=== PATIENT | female | born 2000 | race Caucasian/White ===

== ENCOUNTER 2018-12-15 10:37 | Emergency (ER) | payer BC ==
[2018-12-15 11:34] LABS: Absolute Lymphocytes (CBC) 2.3 K/uL (0.7-4.9); Absolute Monocytes 0.5 K/uL (0.1-1.3); Basophils % 0.9 % (0-1.3); Eosinophils % 2.3 % (0-4.4); Hematocrit 38.1 % (36.0-45.0); Lymphocytes % 38.9 % (15.3-44.8); MPV 8.4 fL (7.6-11.3); Monocytes % 7.5 % (3.3-12.3); RBC Red Blood Cell Count 4.65 M/uL (3.86-4.86)
[2018-12-15 11:52] LABS: ALT/SGPT 21 U/L (12-78); AST/SGOT 13 U/L (15-37); Alkaline Phosphatase 76 U/L (45-117); BUN Blood Urea Nitrogen 11 mg/dL (7-18); Bicarbonate 30 mmol/L (21-32); Bilirubin Direct < 0.1 mg/dL (0-0.2); Bilirubin Total 0.3 mg/dL (0.2-1.0); Glucose Level 113 mg/dL (74-106); Lipase 126 U/L (73-393); Potassium 4.1 mmol/L (3.5-5.1); Protein, Total 7.6 g/dL (6.4-8.2); Sodium Level 139 mmol/L (136-145)
--- NOTE | 2018-12-15 12:15 | EDPHYS ---
Physician Documentation [facility] Name: Lin Kelley Age: 18 yrs Sex: Female : 2000 Arrival Date: 12/15/2018 Time: 10:39 Bed 16 Private MD: ED Physician Varun Vega HPI: 12/15 11:11 This 18 yrs old Female presents to ER via Ambulatory with complaints of jmm Diarrhea, Abdominal Pain. 11:11 The patient presents to the emergency department with nausea, diarrhea, abdominal pain. jmm Onset: The symptoms/episode began/occurred gradually, 3 month(s) ago. Possible causes: unknown. This is a 18 year old female with no chronic medical conditions that presents to the ED with complaints of diarrhea for months. patient recently finished a course of amoxicillin and flagyl. Symptoms continue with occasional episode of LLQ pain. . 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 - Social history:: Smoking status: Patient/guardian denies using tobacco. - Ebola Screening: : Patient negative for fever greater than or equal to 101.5 degrees Fahrenheit, and additional compatible Ebola Virus Disease symptoms Patient denies exposure to infectious person Patient denies travel to an Ebola-affected area in the 21 days before illness onset No symptoms or risks identified at this time. ROS: 11:11 Constitutional: Negative for fever, chills, and weight loss, Cardiovascular: Negative jmm for chest pain, palpitations, and edema, Respiratory: Negative for shortness of breath, cough, wheezing, and pleuritic chest pain. 11:11 Abdomen/GI: Positive for abdominal pain, diarrhea. 11:11 All other systems are negative. Exam: 11:11 Constitutional: This is a well developed, well nourished patient who is awake, alert, jmm and in no acute distress. Head/Face: atraumatic. Eyes: EOMI, no conjunctival erythema appreciated ENT: Moist Mucus Membranes Neck: Trachea midline, Supple Chest/axilla: Normal chest wall appearance and motion. Cardiovascular: Regular rate and rhythm. No edema appreciated Respiratory: Normal respirations, no respiratory distress appreciated 11:11 Abdomen/GI: Inspection: abdomen appears normal, Bowel sounds: normal, Palpation: abdomen is soft and non-tender, in all quadrants. 11:11 Back: ROM is normal. 11:11 Musculoskeletal/extremity: ROM: intact in all extremities. 11:11 Skin: Appearance: Color: normal in color. 11:11 Neuro: Orientation: is normal, Mentation: is normal, Memory: is normal. 11:11 Psych: Behavior/mood is pleasant, cooperative. Vital Signs: 10:47 BP 130 / 79; Pulse 79; Resp 17; Temp 97.8(O); Pulse Ox 100% on R/A; Weight 72.57 kg sg (R); Height 5 ft. 4 in. (162.56 cm); Pain 6/10; 11:30 BP 118 / 73; Pulse 77; Resp 16; Pulse Ox 100% on R/A; rb1 12:30 BP 110 / 67; Pulse 75; Resp 15; Pulse Ox 100% on R/A; rb1 10:47 Body Mass Index 27.46 (72.57 kg, 162.56 cm) MDM: 10:41 Patient medically screened. angie 12:12 Data reviewed: vital signs, nurses notes. Counseling: I had a detailed discussion with fiona the patient and/or guardian regarding: the historical points, exam findings, and any diagnostic results supporting the discharge/admit diagnosis, lab results, radiology results, the need for outpatient follow up, to return to the emergency department if symptoms worsen or persist or if there are any questions or concerns that arise at home. ED course: Repeat abdominal exam is non tender to palpation. Labs are unremarkable. Symptoms have been chronic. I do not currently suspect an acute intraabdominal process. Patient given strict return precautions. Patient will follow up with GI for further evaluation. . 12/15 11: Order name: Basic Metabolic Panel; Complete Time: 12: [facility] 12/15 11: Order name: CBC with Diff; Complete Time: 12: [facility] 12/15 11: Order name: Creatinine for Radiology; Complete Time: 12: [facility] 12/15 11:02 Order name: Hepatic Function; Complete Time: 12: [facility] 12/15 11: Order name: Lipase; Complete Time: 12: [facility] 12/15 11:24 Order name: Urine Dipstick--Ancillary (enter results) ms 12/15 11:02 Order name: IV Saline Lock; Complete Time: : [facility] 12/15 11:02 Order name: Labs collected and sent; Complete Time: [facility] 12/15 11:02 Order name: Urine Test (obtain specimen); Complete Time: : [facility] 12/15 11:24 Order name: Urine --Ancillary (enter results) ms Administered Medications: No medications were administered Disposition: 12/16 07:50 Co-signature as Attending Physician, Varun Vega MD I agree with the assessment and angie plan of care. Disposition: 12/15/18 12:14 Discharged to Home. Impression: Generalized abdominal pain, Diarrhea, unspecified. - Condition is Stable. - Discharge Instructions: Abdominal Pain, Adult, Food Choices to Help Relieve Diarrhea, Adult, Diarrhea, Adult. - Medication Reconciliation Form, Thank You Letter, Antibiotic Education, Prescription Opioid Use form. - Follow up: Doug Corona MD; When: 2 - 3 days; Reason: Recheck today's complaints, Continuance of care, Re-evaluation by your physician. Signatures: Dispatcher [employer] EDYung Snell RN RN Varun Sherwood MD MD cha Mickail, Joel, PA PA [facility] Isabel Tidwell, RN RN rb1 Corrections: (The following items were deleted from the chart) 12/15 12:45 12:14 12/15/2018 12:14 Discharged to Home. Impression: Generalized abdominal pain; rb1 Diarrhea, unspecified. Condition is Stable. Forms are Medication Reconciliation Form, Thank You Letter, Antibiotic Education, Prescription Opioid Use. Follow up: Doug Corona; When: 2 - 3 days; Reason: Recheck today's complaints, Continuance of care, Re-evaluation by your physician. kiran
--- NOTE | 2018-12-15 12:15 | ER ---
Nurse's Notes [facility] Name: Lin Kelley Age: 18 yrs Sex: Female : 2000 Arrival Date: 12/15/2018 Time: 10:39 Bed 16 Private MD: Diagnosis: Generalized abdominal pain;Diarrhea, unspecified Presentation: 12/15 10:45 Presenting complaint: Patient states: Abdominal pain for two weeks now, was seen by sg and started on ABX Penicllin/Flagyl for diarrhea and pain, medications complete no changes in the pain or diarrhea per the patient, reports having abd swelling that started last night. Transition of care: patient was not received from another setting of care. Onset of symptoms was December 15, 2018. Risk Assessment: Do you want to hurt yourself or someone else? Patient reports no desire to harm self or others. Initial Sepsis Screen: Does the patient meet any 2 criteria? No. Patient's initial sepsis screen is negative. Does the patient have a suspected source of infection? No. Patient's initial sepsis screen is negative. Care prior to arrival: None. 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 - Social history:: Smoking status: Patient/guardian denies using tobacco. - Ebola Screening: : Patient negative for fever greater than or equal to 101.5 degrees Fahrenheit, and additional compatible Ebola Virus Disease symptoms Patient denies exposure to infectious person Patient denies travel to an Ebola-affected area in the 21 days before illness onset No symptoms or risks identified at this time. Screenin:40 Abuse screen: Denies threats or abuse. Nutritional screening: No deficits noted. rb1 Tuberculosis screening: No symptoms or risk factors identified. Fall Risk None identified. Assessment: 10:40 General: Appears in no apparent distress. comfortable, Behavior is calm, cooperative, rb1 Denies fever. Pain: Complains of pain in right lower quadrant and left lower quadrant Pain currently is 2 out of 10 on a pain scale. Pain began Off and on for several months. Neuro: Level of Consciousness is awake, alert, obeys commands, Oriented to person, place, time, situation. Cardiovascular: Capillary refill < 3 seconds is brisk in bilateral fingers. Respiratory: Airway is patent Respiratory effort is even, unlabored, Respiratory pattern is regular, symmetrical. GI: Abdomen is non-distended, Reports diarrhea, nausea, since x several months. : Reports foul odor. Derm: Skin is pink, warm \T\ dry. Musculoskeletal: Range of motion: intact in all extremities. 10:40 GI: Reports indigestion. rb1 11:29 Reassessment: Patient appears in no apparent distress at this time. No changes from rb1 previously documented assessment. 12:25 Reassessment: Patient appears in no apparent distress at this time. Patient and/or rb1 family updated on plan of care and expected duration. Pain level reassessed. Patient is alert, oriented x 3, equal unlabored respirations, skin warm/dry/pink. Mother at bedside. Vital Signs: 10:47 BP 130 / 79; Pulse 79; Resp 17; Temp 97.8(O); Pulse Ox 100% on R/A; Weight 72.57 kg sg (R); Height 5 ft. 4 in. (162.56 cm); Pain 6/10; 11:30 BP 118 / 73; Pulse 77; Resp 16; Pulse Ox 100% on R/A; rb1 12:30 BP 110 / 67; Pulse 75; Resp 15; Pulse Ox 100% on R/A; rb1 10:47 Body Mass Index 27.46 (72.57 kg, 162.56 cm) ED Course: 10:39 Patient arrived in ED. mr 10:40 Niraj Sheldon PA is PHCP. jmm 10:40 Varun Vega MD is Attending Physician. jmm 10:40 Patient has correct armband on for positive identification. Bed in low position. Call rb1 light in reach. Side rails up X 1. Pulse ox on. NIBP on. 10:46 Triage completed. sg 10:47 Arm band placed on. sg 10:50 Inserted saline lock: 22 gauge in left antecubital area, using aseptic technique. Blood rb1 collected. 11:02 Isabel Tidwell, RIANA is Primary Nurse. rb1 12:14 Doug Corona MD is Referral Physician. jmm 12:45 No provider procedures requiring assistance completed. rb1 12:45 IV discontinued, intact, bleeding controlled, No redness/swelling at site. Pressure rb1 dressing applied. Administered Medications: No medications were administered Outcome: 12:14 Discharge ordered by . [facility] 12:45 Patient left the ED. rb1 12:45 Discharged to home ambulatory, with family. rb1 12:45 Condition: stable 12:45 Discharge instructions given to patient, Instructed on discharge instructions, follow up and referral plans. Demonstrated understanding of instructions, follow-up care, Prescriptions given X none Signatures: Yung Santos, RN RN Niraj Sheldon PA PA jmm Rivera, Mary mr Isabel Tidwell RN RN rb1
[2018-12-15 13:59] LABS: Urine Blood NEGATIVE (NEG); Urine Glucose NEGATIVE (NEG); Urine Protein NEGATIVE (NEG)
== END 2018-12-15 12:45 | disposition home or self-care (01) ==
LOC: ER 10:37
DX: R19.7 Diarrhea, unspecified (principal); R10.9 Unspecified abdominal pain
CPT/HCPCS: 36415; 80048; 80076; 81003; 81025; 83690; 85025; 99284